=== PATIENT | female | born 1950 | race Caucasian/White ===

== ENCOUNTER 2022-10-25 07:50 | Day surgery (SDC) | payer MEDICARE, OTHER ==
[~2022-10-25] VITALS: Ht 172.7 cm; Wt 76.3 kg
[2022-10-25] VITALS (9 sets, daily range): BP systolic 126–154; BP diastolic 59–79
[2022-10-25] MEDS ORDERED: normal saline 1,000 ML IV SCH (08:15)
[2022-10-25] MEDS ORDERED: diphenhydrAMINE 25mg capsule PO PRN (08:15)
[2022-10-25] MEDS ORDERED: SERT25TA PO (08:24)
[2022-10-25] MEDS ORDERED: DIVA500T9 PO (08:24)
[2022-10-25] MEDS ORDERED: sodium bicarbonate (8.4%) inj. 150 ML in dextrose 5%-water 850 ML IV ONE (08:25)
[2022-10-25 08:49] LABS: BASOPHILS % (AUTO) 0.5 % (0-1); EOSINOPHILS # (AUTO) 0.1 X10'3 (0-0.9); HEMATOCRIT 34.1 % (35.0-45.0); HEMOGLOBIN 11.3 g/dl (12.0-16.0); LYMPHOCYTES # (AUTO) 2.9 X10'3 (1.1-4.8); LYMPHOCYTES % (AUTO) 35.9 % (21-51); MEAN CORPUSCULAR HEMOGLOBIN 30.9 PG (27.0-31.0); MEAN CORPUSCULAR HGB CONC 33.1 g/dL (33.0-36.5); MEAN CORPUSCULAR VOLUME 93.4 FL (78-98); MEAN PLATELET VOLUME 9.3 FL (7.4-10.4); MONOCYTES # (AUTO) 0.6 X10'3 (0-0.9); MONOCYTES % (AUTO) 7.1 % (2-12); NEUTROPHILS # (AUTO) 4.5 X10'3 (1.8-7.7); NEUTROPHILS % (AUTO) 55.5 % (42-75); PLATELET COUNT 141 X10'3 (140-440); RED BLOOD COUNT 3.65 X10'6 (4.20-5.60); RED CELL DISTRIBUTION WIDTH 13.4 % (11.5-14.5); WHITE BLOOD COUNT 8.1 X10'3 (4.5-11.0)
[2022-10-25 09:24] LABS: ALBUMIN 3.2 G/DL (3.4-5.0); ANION GAP 11 (8-16); BLOOD UREA NITROGEN 24 MG/DL (7-18); BUN/CREATININE RATIO 8.8 (6.6-38.0); CALCIUM 8.3 MG/DL (8.5-10.1); CHLORIDE 108 MMOL/L (99-107); CREATININE 2.74 MG/DL (0.40-0.90); GLUCOSE 116 MG/DL (70-104); MAGNESIUM 1.6 MG/DL (1.5-2.4); POTASSIUM 3.7 MMOL/L (3.5-5.1); SODIUM 140 MMOL/L (135-145); TOTAL CARBON DIOXIDE 20.6 MMOL/L (24-32); eGFR 17 ML/MIN
[2022-10-25] MEDS ORDERED: verapamil 2.5 mg/ml inj IV ONE (12:13)
[2022-10-25] MEDS ORDERED: nitroGLYCERIN-Tridil 50MG/D5W 250 ML IV ONE (12:13)
[2022-10-25] MEDS ORDERED: heparin 1,000unit/ml 10ml vial 20 ML ONE (12:14)
[2022-10-25] MEDS ORDERED: iohexol 350MG/ML 100ml bottle IV ONE (12:14)
[2022-10-25] MEDS ORDERED: iohexol 350 MG/ML 50ML vial IV ONE (12:14)
[2022-10-25] MEDS ORDERED: LIDOcaine 1% 30ml preserv. free vial ONE (12:14)
[2022-10-25] MEDS ORDERED: FENTANYL CITRATE/PF 50 MCG/1 ML VIAL ONE (12:14)
[2022-10-25] MEDS ORDERED: midazolam 1 mg/ML 2ml injection ONE (12:14)
[2022-10-25] MEDS ORDERED: hydrALAZINE 20mg/ml inj. IV ONE (13:08)
[2022-10-25] MEDS ORDERED: proCHLORperazine 10 MG/2 ml inj IV PRN (13:40)
[2022-10-25] MEDS ORDERED: ondansetron/PF 4mg/2ml inj IV PRN (13:40)
[2022-10-25] MEDS ORDERED: cloNIDine 0.1 mg tablet PO ONE (13:40)
[2022-10-25] MEDS ORDERED: HYDROcodone/acetaminophen 5mg/325mg tablet PO PRN (13:40)
[2022-10-25] MEDS ORDERED: HYDROcodone/acetaminophen 10/325mg tab PO PRN (13:40)
[2022-10-25] MEDS ORDERED: bumetanide 1mg tablet PO ONE (15:30)
== END 2022-10-25 16:50 | disposition home or self-care (01) ==
LOC: SSTAY O 07:50
PROVIDERS: ATTEND Internal Medicine Cardiovascular Disease
DX: R94.39 Abnormal result of other cardiovascular function study (principal); R07.9 Chest pain, unspecified; I25.10 Atherosclerotic heart disease of native coronary artery without angina pectoris; I48.0 Paroxysmal atrial fibrillation; I12.0 Hypertensive chronic kidney disease with stage 5 chronic kidney disease or end stage renal disease; E11.22 Type 2 diabetes mellitus with diabetic chronic kidney disease; N18.5 Chronic kidney disease, stage 5; D50.9 Iron deficiency anemia, unspecified; E11.42 Type 2 diabetes mellitus with diabetic polyneuropathy; F32.A Depression, unspecified; G47.419 Narcolepsy without cataplexy; Z87.19 Personal history of other diseases of the digestive system; Z90.89 Acquired absence of other organs; Z90.49 Acquired absence of other specified parts of digestive tract; Z98.49 Cataract extraction status, unspecified eye; Z88.5 Allergy status to narcotic agent; Z79.899 Other long term (current) drug therapy; Z98.890 Other specified postprocedural states
CPT/HCPCS: 36415; 80048; 83735; 85025; 85610; 93005; 93454; 99152; C1769; C1894; J0360; J1644; J2250; J3010; J3490; J7030; J7070; Q0163; Q9967; A6258; A6402

== ENCOUNTER 2025-09-28 22:51 | Inpatient (IN) | payer MEDICARE, OTHER ==
[~2025-09-28] VITALS: Ht 172.7 cm; Wt 64.0 kg
[~2025-09-28 22:51] MED LIST: DIVA500T9 PO; SERT25TA PO
[2025-09-29] MEDS ORDERED: ERGO500093 PO (00:28)
--- NOTE | 2025-09-29 01:02 | Physician Documentation ---
History of Present Illness ~ Chief Complaint: Flank Pain Stated Complaint: TRANSFER SE M ALS Time Seen by MD: 00:51 Primary Medical Doctor: [facility] Mode of Arrival: EMS HPI Patient presents to the emergency room sent from that [facility] side facility for acute kidney injury that has well as urinary tract infection. CT scan performed at facility was negative for obstructing stone. Patient found to have significant acidosis and was started on D5 with bicarb. Dr. Steele, cloth doffer was contacted in his aware of patient. Rocephin administered. Currently the patient has no complaints. She is established with nephrology and sees Dr. Rosario on regular basis. He is apparently told her that she will eventually need di alysis but has not yet. Medication Reconciliation Allergies: Coded Allergies: amoxicillin (Verified Allergy, Unknown, 09/29/25) ciprofloxacin (Verified Allergy, Unknown, RASH, 09/29/25) codeine (Verified Allergy, Unknown, 09/28/25) Scheduled Divalproex ER* (Depakote ER*), 2 TAB PO BID, (Reported) Ergocalciferol (Vitamin D2) (Vitamin D2), 1 CAP PO Q7D, (Reported) Sertraline Hcl* (Zoloft*), 100 MG PO BID, (Reported) Review of Systems ROS All review of systems negative except as per HPI Physical Exam Vital Signs: Temperature: 97.9, Source: Oral, Heart Rate: 108, Respiratory Rate: 14, BP: 137/60, Pulse Oximetry: 100, Weight: 68.000 Oxygen Flow Rate: 0 Physical Exam General: Patient is awake, alert, oriented x4 in no acute distress and well appearing.~ Head: Normocephalic and atraumatic. Eyes: Conjunctival normal. EOMI. PERRL. ENT: Mucous membranes moist. Neck: Supple, trachea is midline. Chest: Clear to auscultation bilaterally without rales, rhonchi, or wheezes. There is no accessory muscle use or retractions. Cardiac: RRR without murmurs, gallops, or rubs. Abd: Soft, nondistended, nontender, with normoactive bowel sounds. No guarding, rebound, or rigidity. Progress Results/Orders Results/Orders Orders - LORENZO YOUSSEF MD Page Hospitalist (09/29/25 01:47) Fill Out Med Reconciliation (09/29/25 01:47) Completed Orders - LORENZO YOUSSEF MD Cbc/Diff (09/29/25 00:52) BMP (09/29/25 00:52) Ferritin (09/29/25 01:10) Hgb A1c (09/29/25 01:10) Medications Received in ER Medications (Trade) Dose Ordered Sig/Inés Route PRN Reason Start Time Stop Time Status Last Admin Dose Admin Sodium Bicarbonate 150 ml/Dextrose 1,150 ml @ 100 mls/hr [id number] IV 09/29/25 02:20 09/29/25 02:20 100 MLS/HR Vital Signs 09/28/25 09/28/25 09/29/25 09/29/25 22:55 23:06 00:11 01:00 Temp 97.9 Pulse 58 108 104 Resp 16 16 14 15 B/P (MAP) 123/63 137/60 (85) 125/82 (96) Pulse Ox 99 100 100 O2 Flow Rate 0 0 09/29/25 01:56 Pulse 110 Resp 14 B/P (MAP) 107/54 (71) Pulse Ox 98 Laboratory Tests Test 09/28/25 23:55 09/29/25 01:10 Urine Specimen Description Cln catch midstream Urine Color Straw Urine Clarity Slightly cloudy Urine pH 6.0 Urine Specific [place] 1.015 Urine Protein Trace Urine Glucose (UA) Negative Urine Ketones Negative Urine Occult Blood Negative Urine Nitrite Negative Urine Bilirubin Negative Urine Urobilinogen 0.2 Urine Leukocyte Esterase Small H Urine RBC 0-2 Urine WBC 20-30 H Urine Squamous Epithelial Cells Few Urine Renal Cells Few Urine Bacteria 1+ Urine Mucus Few Urine Culture Indicated Indicated Volume Urine Centrifuged 10 ml Urine Comment White Blood Count 7.0 Red Blood Count 3.40 L Hemoglobin 10.9 L Hematocrit 32.1 L Mean Corpuscular Volume 94.4 Mean Corpuscular Hemoglobin 32.2 H Mean Corpuscular Hemoglobin Concent 34.1 Red Cell Distribution Width 14.1 Platelet Count 104 L Mean Platelet Volume 9.8 Neutrophils (%) (Auto) 53.3 Lymphocytes (%) (Auto) 38.0 Monocytes (%) (Auto) 8.0 Eosinophils (%) (Auto) 0.3 Basophils (%) (Auto) 0.4 Neutrophils # (Auto) 3.7 Lymphocytes # (Auto) 2.7 Monocytes # (Auto) 0.6 Eosinophils # (Auto) 0.0 Basophils # (Auto) 0.0 CBC Comment Sodium Level 145 Potassium Level 3.4 L Chloride Level 115 H Carbon Dioxide Level 17.7 L Anion Gap 12 Blood Urea Nitrogen 51 H Creatinine 4.90 H Estimated GFR/1.73 m2 9 BUN/Creatinine Ratio 10.4 Glucose Level 97 Hemoglobin A1c 5.1 Calcium Level 7.7 L Ferritin 377 H Albumin 2.9 L Chemistry Comments Medical Decision Making Additional information obtaine: other Findings Patient presents to the emergency room as a transfer from outside facility. Rechecking labs. Patient's vitals are stable. She is nontoxic appearing. Nephrology has already aware of patient. IV antibiotics have already been initiated. Urinary Diff Dx:Considerations: Include: AAA, , Aortic dissection, Appendicitis, Bowel obstruction, Cholelithiasis, Choleangitis, DJD, Ectopic , Hepatitis, HNP, Impaction, Intrauterine , Musculoskeletal pain, Ovarian torsion, Pancreatitis, PID, Post-Op complication, Pyelonephritis, Renal failure, Strain, Urinary Obstruction, Urolithiasis, Urinary retention, UTI, Vaginitis, Other Genital Diff Dx:Considerations: Include: -Complete, -Incomplet e, -Inevitable, Ablortion-Missed, -Threatened, Abruptio placentae, Bartholin abscess, Bartholin cyst, Blood loss anemia, Constipation, Cervicitis, Dsymenorrhea, Ectopic , Foreign body, Hormonal, Hidradenitis suppurativa, Intrauterine , Menorrhagia, Menometrorrhagia, Menstrual bleeding, Myomatous uterus, Perianal abscess, Physiologic discharge, Pinworms, PID, Placenta previa, , Precipitous Hct, Trauma, UTI, Vaginitis(osis)-Atrophic, Vaginitis, Vaginitis(osis)-Bacterial, Vaginitis(osis)- Candidal, Vaginitis(osis)-Contact, Vaginitis(osis)-Herpes, Vaginitis(osis)- Trich., Other Departure Admitted to Inpatient Unit: yes, to hospitalist Impression: Primary Impression: Acute urinary tract infection Additional Impression: Acute kidney injury Condition: Guarded Referrals: NO PRIMARY CARE PROVIDER (PCP) Critical Care Note Total Time (mins): 30 Critical Care Note The note accurately reflects work and decisions made by me.Lorenzo Youssef MD 09/29/25 01:02 Signature Scribe Signature: No scribe Attestation: The note accurately reflects work and decisions made by me.Lorenzo Youssef MD 09/29/25 04:23 LORENZO YOUSSEF MD Sep 29, 2025 01:02
[2025-09-29 01:41] LABS: CREATININE 4.90 MG/DL (0.40-0.90); TOTAL CARBON DIOXIDE 17.7 MMOL/L (24-32); eCRCL 10 ML/MIN; eGFR 9 ML/MIN
[2025-09-29 01:46] LABS: MEAN PLATELET VOLUME 9.8 FL (7.4-10.4); RED CELL DISTRIBUTION WIDTH 14.1 % (11.5-14.5)
[2025-09-29] MEDS ORDERED: magnesium sulf-water 4G/100mL 100 ML IV PRN (02:20)
[2025-09-29] MEDS ORDERED: magnesium sulf-water 2g/50mL 50 ML IV PRN (02:20)
[2025-09-29] MEDS: sodium bicarbonate 1meq/ml inj 150 ML in dextrose 5%-water 1,000 ML IV SCH (02:20)
[2025-09-29] MEDS ORDERED: potassium Cl 40MEQ/1/2NS 520ml 520 ML IV PRN (02:20)
[2025-09-29] MEDS ORDERED: potassium Cl 20 mEq SR tablet PO PRN (02:20)
[2025-09-29 03:45] LABS: LEUKOCYTE ESTERASE ,URINE SMALL (Neg); NITRITES, URINE NEGATIVE (Neg); OCCULT BLOOD,URINE NEGATIVE (Neg)
[2025-09-29 03:49] LABS: UA COLLECTION TYPE CLN CATCH MIDSTREAM
[2025-09-29 03:50] LABS: MUCUS STRANDS FEW /LPF (Neg); RENAL CELLS, URINE FEW /HPF; SQUAMOUS EPITHELIAL CELL,UR FEW /LPF (FEW)
--- NOTE | 2025-09-29 03:51 | HISTORY AND PHYSICAL-Residence ---
History & Physical Providers to CC Resident Creating Document: TRAVON ALDANA RES CC: MILLIE GONSALEZ MD ~ History of Present Illness Primary Medical Doctor: [facility] Reason for Admit\Complaint: Dysuria, fever History of Present Illness 44-year-old female with past medical history of CKD stage 4, seizures, revision, came as a transfer from [facility] for management of RADHA. Patient is initially started as dysuria, fever, nausea has been ongoing food to two weeks with decreased food and monitor intake. For these complaints she went to [place] with she was treated with Rocephin, fluids. She was also diagnosed with paroxysmal AFib with RVR and came IV metoprolol. Currently patient is in sinus rhythm with heart rate in 90s. She also had metabolic acidosis for which the started on bicarbonate drip. She is on follow up with Dr. Rosario on outpatient basis for CKD stage 4. Denies oliguria Allergies: Coded Allergies: amoxicillin (Verified Allergy, Unknown, 09/29/25) ciprofloxacin (Verified Allergy, Unknown, RASH, 09/29/25) codeine (Verified Allergy, Unknown, 09/28/25) Home Medications Home Medications Active Reported Vitamin D2 (Ergocalciferol (Vitamin D2)) 1,250 Mcg (75808 Unit) Capsule 1 Cap PO Q7D Zoloft* (Sertraline HCl) 25 Mg Tablet 100 Mg PO BID Depakote ER* (Divalproex Sodium) 500 Mg Tab.sr.24h 2 Tab PO BID Past Medical History Past Medical History Seizures, depression, CKD stage 4 Past Surgical History Surgical History Comment None Past Social History Social History Comment Denies smoking, alcohol, illicit drug use Independent for ADLs ROS ROS ROS Constitutional: No fever, dizziness, weakness. no change in appetite/weight HEENT: No blurring of the vision, No sore throat, epistaxis, tinnitus Cardiovascular: No chest pain/discomfort, palpitations, syncope. No pedal edema Respiratory: No sob, cough,, hemoptysis Gastrointestinal: No abdominal pain, nausea, vomiting. No diarrhea, constipation, melena. Genitourinary: Complaining of dysuria, intermittent abdominal pain Musculoskeletal: No arthralgia, myalgia Endocrine: No fatigue, polydipsia, polyuria. No heat or cold intolerance Neurologic: No headache, vertigo. No weakness, numbness or tingling of extremities Psychiatric: No hallucinations/delusions, no anhedonia, no suicidal ideation\ Hematologic: No bleeding or bruises Reviewed in full. All negative except for pertinent positives in HPI Exam Vitals: Vital Signs Date Time Temp Pulse Resp B/P (MAP) Pulse Ox O2 Delivery O2 Flow Rate FiO2 09/29/25 03:00 64 16 117/56 (76) 100 09/29/25 00:11 0 09/28/25 22:55 97.9 General: General: Pleasant elderly female, thin and malnourished, not in apparent distress Head: Normocephalic with an atraumatic Eyes: Pupils- 3mm, reacting to light, conjunctiva- anicteric Nose and throat: No polyps, septum- normal, no mucosal ulcers Neck: Supple, no lymphadenopathy, no carotid bruit Respiratory: No use of accessory muscles of respiration, Bilateral normal vesiscular breath sounds heard. No wheeze, rhochi or creps Cardiac: S1-S2 heard, rythm regular, no gallop/murmur Abdomen: non distended, no tenderness, no organomegaly, bowel sounds- heard Extremities: no clubbing, no pedal edema, no deformities, peripheral pulses- 2+ Skin: warm and dry, no rash, no purpura Neuro: No focal deficit, gross cranial nerve exam- normal Diagnostic Data Last Recorded Lab Results: 09/29/2510909/29/25109 Advance Care Planning Advanced Care plannin - 30 Minutes (Code status is discussed with her and she opted for full code) Additional Plan 74-year-old female with PMH of CKD four, seizures, depression, presented to the ER with chief complaints of dysuria, fever, vomitings for two weeks UTI/ACUTE CYSTITIS -presented with dysuria, few, vomitings ongoing for two weeks with history of UTI once a year -previous history of MDR organism -CT abdomen ruled out pyelonephritis -urinalysis positive for leukocyte esterase, negative nitrites, multiple WBC -empirically started on IV Rocephin -follow up on urine cultures and deescalate antibiotics if needed RADHA ON CKD-4 -currently creatinine-4.9, creatinine was 5.2 yesterday -baseline creatinine unknown but as per patient she had stage IV CKD -etiology of CKD unknown. She had no history of diabetes/hypertension she is on follow up with sql manager, obtain records from Dr. Florez office -monitor BMP, follow up on urine lytes, -CT abdomen showed bilateral renal scarring right more than left-suggesting CKD -monitor calcium, phosphorus, PTH NON-ANION GAP METABOLIC ACIDOSIS -suspect likely secondary to RADHA/CKD -bicarb 18 -started on bicarbonate drip 150 meq in D5W at 100 cc/hour -monitor BMP NEPHROLITHIASIS -CT abdomen showed small punctate calculi, nonobstructive -recommended adequate hydration PAROXYSMAL AFIB -Gagan Vasc-2 -started on metoprolol succinate 25 mg once daily -follow up on 2D echo -consider anticoagulation at the time of discharge after decision-making with patient Normocytic anemia -H&H common normal MCV and MCH -suspect likely secondary to anemia of chronic disease -follow up on iron panel SEIZURES -continue valproic acid 500 mg b.i.d. DEPRESSION -continue sertraline Code Status: Full code Line/tube: PIV DVT prophylaxis: Heparin Nutrition: Renal diet PT: Yes Prognosis: Guarded Disposition: Continue care in ortho floor Travon Aldana MD IM PGY-3 resident Addendum I personally reviewed the chart, labs and imaging and reviewed the patient with the team. I agree with the assessment and plan as documented by the resident. Patient was seen through remote audio-visual assessment through HIPAA compliance setup. Date of Service: Sep 29, 2025 Billing Provider: MILLIE GONSALEZ MD, HARIVARSHA, RES Sep 29, 2025 03:51 MILLIE GONSALEZ MD Sep 29, 2025 06:40
[2025-09-29] MEDS: docusate sod 100mg capsule PO SCH (07:58)
[2025-09-29] MEDS: potassium Cl 20 mEq SR tablet PO PRN (07:58)
[2025-09-29] MEDS: CefTRIAXone/D5W-Rocephin 1gm 50 ML IV SCH (07:58)
[2025-09-29] MEDS: divalproex sodium 500mg tablet.DR PO SCH (07:59)
[2025-09-29 08:00] VITALS: BP 117/52; PULSE 56; RESP 16; TEMP 97.9; O2SAT 95; O2SAT 97
[2025-09-29] MEDS: heparin, porcine 5000 units/ml vial SQ SCH (08:00)
[2025-09-29] MEDS: K and/or MAG REPLACEMENT MC SCH (08:04)
[2025-09-29 08:28] LABS: CREATININE 4.57 MG/DL (0.40-0.90); TOTAL CARBON DIOXIDE 21.2 MMOL/L (24-32); eCRCL 11 ML/MIN; eGFR 9 ML/MIN
[2025-09-29 10:00] VITALS: BP 120/49; PULSE 59; RESP 19; TEMP 97.7; O2SAT 100
[2025-09-29] MEDS: PERFLUTREN PROTEIN-A MICROSPHR (Optison) 0.22 MG/ML 3ML VIAL IV ONE (10:00)
[2025-09-29 11:36] LABS: % IRON SATURATION 30 % (11-46)
[2025-09-29] MEDS ORDERED: Nepro carb steady vanilla 8oz. PO SCH (17:30)
[2025-09-29] MEDS: Nepro carb steady vanilla 8oz. PO SCH (17:53)
[2025-09-29 18:00] VITALS: BP 124/50; PULSE 58; RESP 16; TEMP 97.5; O2SAT 99
--- NOTE | 2025-09-29 19:18 | PROGRESS NOTE- Residence ---
Progress Note - Resident Providers to CC Resident Creating Document: BRYCE CYR RES ~ Antibiotic Timeout Antibiotic Ordered?: Yes Subjective Patient was seen and examined bedside. She states that she does not have burning micturition today and is feeling better. She is resting comfortable in bed. She denies any medical complaints. PCP-Dr. Gray in [place] Concrete Block Maker- Dr. Ewing Navigation Teacher- Dr. Crane She can ambulate independently, but sometimes uses a walker She lives alone at home Objective Vital Signs Date Time Temp Pulse Resp B/P (MAP) Pulse Ox O2 Delivery O2 Flow Rate FiO2 09/29/25 18:30 90 09/29/25 18:00 97.5 16 124/50 (74) 99 Room Air 09/29/25 05:54 0 Result Diagram: 09/29/25 0110 09/29/25 0732 Awake , alert, and oriented x4, resting comfortably in the bed, in no acute distress HEENT: Atraumatic, normocephalic, EOMI, anicteric sclera ; pink conjunctiva Neck: Trachea midline. Supple, full range of motion, no JVD Cardiac: Regular rhythm, regular rate with no murmurs all over the precordium. Respiratory: Equal breath sounds bilaterally, no tachypnea, no wheezing ,rub or rales, Chest wall is symmetric and without deformity. Gastrointestinal: Abdomen symmetric, non-distended, soft, non-tender, normal bowel sounds x4 quadrant, normoactive, no hepatosplenomegaly Musculoskeletal: No pedal edema, no cyanosis Neurological: Speech is clear, alert, and oriented x 4. No motor or sensory deficit, deep tendon reflexes normal, cerebellar intact. Cranial nerves II-XII intact. Skin: Warm and dry Assessment Assessment 74 yr old female with history of CKD stage 4 transferred from [facility] for management of RADHA and UTI. Plan Plan UTI Presented with dysuria, vomiting ongoing for two weeks with history of UTI once a year Previous history of MDR organism Urinalysis positive for leukocyte esterase, negative nitrites, multiple WBC CT abdomen at [facility] ruled out pyelonephritis Continue IV Rocephin-day 1 Follow up on urine cultures RADHA on CKD stage 4, most likely multifactorial Prerenal ( due to dehydration, Vasomotor nephropathy) and Intrinsic 2/2 ATN Non anion gap metabolic acidosis Creatinine downtrended from 4.9 to 4.57 Baseline creatinine unknown but as per patient she had stage IV CKD BUN is 48 BUN/Cr is normal Fena 1.6 %, which is indeterminate Urine sodium is 50 Etiology of CKD unknown. She had no history of diabetes/hypertension She follows Dr. Rosario outpatient CT abdomen at [facility] showed bilateral renal scarring right more than left- suggesting CKD Corrected calcium 8.6 Follow up phosphorus Pending PTH Bicarbonate has uptrended from 17.7 to 21.2, continue bicarb drip at 100 ml/hr Dr. Steele was consulted, awaiting recommendations Nephrolithiasis CT abdomen at [facility] showed small punctate calculi, nonobstructive Recommended adequate hydration Paroxysmal Afib, rate controlled Gagan Vasc-2 Continue metoprolol succinate 25 mg once daily Follow up echo Patient used eliquis previously but due to bleeding, it was held around 3-4 years ago She follows up with Dr. Crane, and the last she saw him was last month Follow up outpatient Normocytic Hyperchromic anemia H&H - 10.9/32.1 Likely secondary to anemia of chronic disease Serum iron is normal, TIBC is low-253 Pending transferrin Seizures Continue home medication valproic acid 500 mg b.i.d. Depression Continue home medication sertraline 100 mg daily Critical care time spent on the patient > 35 min Code status: Full code DVT prophylaxis: Heparin SubQ Diet/nutrition: Renal diet Prognosis: Guarded Disposition: Continue IV Rocephin, follow urine cultures and monitor renal function tests, awaiting Dr. Steele recommendations, PT eval and DC plan. Resident MD attestation: The patient note has been reviewed and supervised by senior residents PGY-2/ PGY-3. Critical care time 35 minutes. Patient was seen, examined and discussed with attending physician, Dr. Kristyn Cyr MD Internal Medicine resident, PGY-1 Date of Service: Sep 29, 2025 Billing Provider: BERNABE MCGRAW MD Common Visit Codes: 33946-[id number] CARE 30-74 MIN BRYCE CYR, RES Sep 29, 2025 19:18 BERNABE MCGRAW MD Oct 04, 2025 13:48
[2025-09-29 21:07] LABS: CREATININE,URINE RANDOM 96.0 MG/DL; TOTAL PROTEIN,URINE RANDOM 48.9 MG/DL; UA UREA RANDOM 489.0 MG/DL
--- NOTE | 2025-09-29 21:33 | CONSULTATION REPORT ---
Consult Providers to CC ~ History of Present Illness Reason for Admit\Complaint: UTI dysuria History of Present Illness This is a 44-year-old woman with a history of CKD stage IV, seizure disorder, recurrent nephrolithiasis, and chronic NSAID use, transferred for management of RADHA on CKD, with additional comorbidities including non-anion gap metabolic acidosis, normocytic anemia of CKD, paroxysmal atrial fibrillation, and acute cystitis/UTI. She presented with dysuria, nausea, and vomiting, and was found to have a UTI, for which she was started on ceftriaxone. She developed RADHA with a creatinine of 5.2 (now improved to 4.9 after IV fluids), likely multifactorial in etiology, including pre-renal azotemia from volume depletion, possible acute tubular injury, and chronic interstitial nephritis from recurrent stones, infections, and NSAID use. Imaging revealed bilateral renal scarring and a nonobstructing renal calculus without hydronephrosis. She has a non-anion gap metabolic acidosis (CO2 17.7) for which she received bicarbonate therapy. Her normocytic anemia (Hgb 10.9) is consistent with CKD, with ferritin and iron saturation suggesting adequate iron stores. She is also being managed for new- onset atrial fibrillation ([id number] 2) with metoprolol. Her current labs show mild hypokalemia, mild hyponatremia, and hypoalbuminemia. She remains hemodynamically stable, with improving renal function and no current indications for urgent dialysis. Ongoing management will focus on optimizing volume status, correcting metabolic derangements, monitoring for complications, and addressing all CKD-related comorbidities. Allergies: Coded Allergies: amoxicillin (Verified Allergy, Unknown, 09/29/25) ciprofloxacin (Verified Allergy, Unknown, RASH, 09/29/25) codeine (Verified Allergy, Unknown, 09/28/25) lactose (Verified Adverse Reaction, Severe, 09/29/25) causes severe diarrhea upon consumption Home Medications Home Medications Active Reported Vitamin D2 (Ergocalciferol (Vitamin D2)) 1,250 Mcg (14895 Unit) Capsule 1 Cap PO Q7D Zoloft* (Sertraline HCl) 25 Mg Tablet 100 Mg PO BID Depakote ER* (Divalproex Sodium) 500 Mg Tab.sr.24h 2 Tab PO BID Past Medical History Past Medical History Reviewed Past Surgical History Surgical History Comment Reviewed Past Social History Social History Comment Reviewed ROS ROS All other systems negative by patient report Exam Vitals: Vital Signs Date Time Temp Pulse Resp B/P (MAP) Pulse Ox O2 Delivery O2 Flow Rate FiO2 09/29/25 20:00 Room Air 0.0 09/29/25 18:30 90 09/29/25 18:00 97.5 16 124/50 (74) 99 Alert appears comfortable RRR w/o murmur, no JVD CTAB, no wheezes +BS, NT No edema Diagnostic Data Last Recorded Lab Results: 09/29/25 0110 09/29/25 0732 Problems: (1) Disorders of fluid, electrolyte, and acid-base balance Assessment & Plan: Non-Anion Gap Metabolic Acidosis Assessment: Likely due to renal tubular acidosis from advanced CKD; initial bicarbonate 18, improved with IV bicarbonate. Plan: Continue bicarbonate supplementation (oral sodium bicarbonate as tolerated). Monitor serum bicarbonate and adjust dose to maintain CO2 >22. Monitor for volume overload with bicarbonate therapy. Electrolyte Abnormalities Assessment: Mild hypokalemia (K 3.4), mild hyperchloremia, hypoalbuminemia. Plan: Replete potassium as needed, monitor closely. Monitor sodium, chloride, and albumin. Nutritional consult for hypoalbuminemia. (2) Anemia (3) Atrial fibrillation with RVR Assessment & Plan: Paroxysmal Atrial Fibrillation ([id number] 2) Assessment: New-onset atrial fibrillation, rate controlled with metoprolol, no current symptoms. Plan: Continue metoprolol for rate control. Assess need for anticoagulation ([id number] 2, but bleeding risk in CKD). Echocardiogram pending for structural assessment. Monitor electrolytes and volume status. (4) UTI (urinary tract infection) Assessment & Plan: Acute Cystitis/UTI Assessment: Symptomatic UTI, urine cultures pending, started on ceftriaxone. Plan: Continue ceftriaxone pending culture results and sensitivities. Adjust antibiotics based on culture and renal function. Monitor for signs of pyelonephritis or sepsis. (5) Nephrolithiasis Assessment & Plan: Nephrolithiasis and Bilateral Renal Scarring Assessment: History of recurrent stones, current nonobstructing calculus, and bilateral scarring, likely contributing to CKD progression. Plan: Monitor for signs of obstruction or infection. Encourage high fluid intake as tolerated. Consider metabolic stone workup when stable. Urology referral for stone management if indicated. (6) Acute kidney injury Status: Acute Assessment & Plan: RADHA on CKD Stage IV Assessment: Acute kidney injury superimposed on advanced CKD, likely multifactorial (pre-renal from volume depletion, possible acute tubular injury, chronic interstitial nephritis from stones, infections, NSAID use). Plan: Continue to monitor renal function and urine output closely. Maintain euvolemia; avoid further nephrotoxins (NSAIDs, contrast). Adjust all medications for renal dosing. Monitor for indications for renal replacement therapy (refractory hyperkalemia, acidosis, volume overload, uremic symptoms). Repeat renal imaging if clinical status changes. ALLYSON JEAN III DO Sep 29, 2025 21:33
[2025-09-29 22:00] VITALS: BP 101/49; PULSE 75; RESP 19; TEMP 97.9; O2SAT 97
[2025-09-30 06:00] VITALS: BP 130/73; PULSE 60; RESP 14; TEMP 97.3; O2SAT 99
[2025-09-30 06:21] LABS: MEAN PLATELET VOLUME 10.3 FL (7.4-10.4); RED CELL DISTRIBUTION WIDTH 13.6 % (11.5-14.5)
[2025-09-30 06:30] LABS: CREATININE 4.29 MG/DL (0.40-0.90); PHOSPHORUS 4.2 MG/DL (2.3-4.5); TOTAL CARBON DIOXIDE 29.9 MMOL/L (24-32); eCRCL 12 ML/MIN; eGFR 10 ML/MIN
[2025-09-30] MEDS: magnesium Cl slow-release 64mg tablet PO PRN (07:32)
[2025-09-30 08:00] VITALS: RESP 17; O2SAT 97
[2025-09-30] MEDS: normal saline 1000ml 1,000 ML IV SCH (08:52)
[2025-09-30 10:00] VITALS: BP 110/72; PULSE 65; RESP 16; TEMP 98.8; O2SAT 100
[2025-09-30] MEDS: potassium Cl 20 mEq SR tablet PO STA (13:09)
--- NOTE | 2025-09-30 17:43 | PROGRESS NOTE- Residence ---
Progress Note - Resident Providers to CC Resident Creating Document: PETER OCHOATIK, SID ~ Antibiotic Timeout Antibiotic Ordered?: Yes Subjective Patient seen and examined at the bedside today. Patient stated that her burning micturition has improved. She now has no further nausea or episodes of vomiting and overall is feeling better. Denied any further concerns or complaints. We have had a discussion with the patient regarding the possibility of dialysis and the patient stated that she understands the risks, benefits and the problems of her condition. No other overnight events were reported. Objective Vital Signs Date Time Temp Pulse Resp B/P (MAP) Pulse Ox O2 Delivery O2 Flow Rate FiO2 09/30/25 10:00 98.8 65 16 110/72 (85) 100 Room Air 09/29/25 20:00 0.0 Result Diagram: 09/30/25 0538 09/30/25 0538 Awake , alert, and oriented x4, resting comfortably in the bed, in no acute distress HEENT: Atraumatic, normocephalic, EOMI, anicteric sclera ; pink conjunctiva Neck: Trachea midline. Supple, full range of motion, no JVD Cardiac: Irregularly irregular rate and rhythm. No murmurs or rubs noted. Respiratory: Equal breath sounds bilaterally, no tachypnea, no wheezing ,rub or rales, Chest wall is symmetric and without deformity. Gastrointestinal: Abdomen symmetric, non-distended, soft, non-tender, normal bowel sounds x4 quadrant, normoactive, no hepatosplenomegaly Musculoskeletal: No pedal edema, no cyanosis Neurological: Speech is clear, alert, and oriented x 4. No motor or sensory deficit, deep tendon reflexes normal, cerebellar intact. Cranial nerves II-XII intact. Skin: Warm and dry Assessment Assessment 74 yr old female with history of CKD stage 5 transferred from [facility] for management of RADHA and UTI. Plan Plan UTI Presented with dysuria, vomiting ongoing for two weeks with history of UTI once a year Previous history of MDR organism Urinalysis positive for leukocyte esterase, negative nitrites, multiple WBC CT abdomen at [facility] ruled out pyelonephritis Continue IV Rocephin-day 02 Urine culture no growth after one day. RADHA on CKD stage 5, most likely multifactorial Prerenal ( due to dehydration, Vasomotor nephropathy) and Intrinsic 2/2 ATN Non anion gap metabolic acidosis gastroesophageal The patient's renal function test showing mild improvement. Creatinine 4.29 today. The patient's BUN/creatinine was normal, phenol 1.6% and spot sodium was 50. CT abdomen at [facility] showed bilateral renal scarring right more than left- suggesting CKD Requested strict input and output monitoring. History of advanced CKD most likely multifactorial from decreased volume, ATN, chronic interstitial nephritis from renal stones, NS ID use and infections. She follows Dr. Rosario outpatient Patient appeared significantly dehydrated. Was initially treated with IV bicarb drip due to metabolic acidosis. The metabolic acidosis has corrected. The bicarb today is 29.9. Change the bicarb to NS at 100 cc/hour. The on-call commercial illustrator Dr. Steele has been following the patient. Appreciate recommendations. Dr. Steele has been discussing with the patient the possibility of having to start dialysis with the patient. We will monitor and continue management as per Dr. Stelee. Hypokalemia Hypomagnesemia The patient received p.o. potassium of 20 mEq and p.o. magnesium of 128 mg. Conservative management of replacement of the patient's electrolytes as the patient has very poor renal function. We will continue to monitor the patient's electrolytes closely. Continue management as per Dr. Steele, nephrology. Nephrolithiasis CT abdomen at [place] showed small punctate calculi, nonobstructive Recommended adequate hydration. Continue NS at 100 cc/hour. Paroxysmal Afib, rate controlled Gagan Vasc-2 Continue metoprolol succinate 25 mg once daily Follow up echo Patient used eliquis previously but due to bleeding, it was held around 3-4 years ago She follows up with Dr. Crane, and the last she saw him was last month Follow up outpatient Normocytic Hyperchromic anemia Most likely secondary to anemia of chronic disease. Continue H&H monitoring. Seizures Continue home medication valproic acid 500 mg b.i.d. Depression Continue home medication sertraline 100 mg daily Code status: Full code DVT prophylaxis: Heparin SubQ Diet/nutrition: Renal diet Prognosis: Guarded Disposition: Continue medical management. Continue to monitor the patient's renal function test and electrolytes. Dr. Steele following the patient for possibility of dialysis. Continue management as per Dr. Steele. Peter Ochoa MD Internal Medicine Resident, PGY-3 Date of Service: Sep 30, 2025 Billing Provider: BERNABE MCGRAW MD Common Visit Codes: [id number] INP/OBS CARE(HIGH) PETER OCHOAK, RES Sep 30, 2025 17:43 BERNABE MCGRAW MD Oct 04, 2025 13:44
[2025-09-30 18:00] VITALS: BP 136/56; PULSE 65; RESP 16; TEMP 98.6; O2SAT 98
[2025-09-30 22:00] VITALS: BP 125/55; PULSE 66; RESP 14; TEMP 97.4; O2SAT 96
--- NOTE | 2025-09-30 22:07 | PROGRESS NOTE ---
Progress Note Dictate Providers to CC ~ Progress Note: This is a 44-year-old woman with a history of CKD stage IV, seizure disorder, recurrent nephrolithiasis, and chronic NSAID use, transferred for management of RADHA on CKD, with additional comorbidities including non-anion gap metabolic acidosis, normocytic anemia of CKD, paroxysmal atrial fibrillation, and acute cystitis/UTI. She presented with dysuria, nausea, and vomiting, and was found to have a UTI, for which she was started on ceftriaxone. She developed RADHA with a creatinine of 5.2 (now improved to 4.9 after IV fluids), likely multifactorial in etiology, including pre-renal azotemia from volume depletion, possible acute tubular injury, and chronic interstitial nephritis from recurrent stones, infections, and NSAID use. Imaging revealed bilateral renal scarring and a nonobstructing renal calculus without hydronephrosis. She has a non-anion gap metabolic acidosis (CO2 17.7) for which she received bicarbonate therapy. Her normocytic anemia (Hgb 10.9) is consistent with CKD, with ferritin and iron saturation suggesting adequate iron stores. She is also being managed for new- onset atrial fibrillation ([id number] 2) with metoprolol. Her current labs show mild hypokalemia, mild hyponatremia, and hypoalbuminemia. She remains hemodynamically stable, with improving renal function and no current indications for urgent dialysis. Ongoing management will focus on optimizing volume status, correcting metabolic derangements, monitoring for complications, and addressing all CKD-related comorbidities. Antibiotic Ordered?: N/A Subjective Subjective He reports doing well this morning no specific complaints Objective Vitals Vital Signs Date Time Temp Pulse Resp B/P (MAP) Pulse Ox O2 Delivery O2 Flow Rate FiO2 09/30/25 20:00 Room Air 0.0 09/30/25 18:30 64 09/30/25 18:00 98.6 16 136/56 (82) 98 Alert, appears comfortable Regular rate and rhythm without murmur, no JVD Clear to auscultation bilaterally, no wheezes Bowel sounds, nontender, no masses No edema Lab Results: 09/30/25 0538 09/30/25 1846 Other Results I & O 09/30/25 07:00 Intake Total 2740 ml Output Total 200 ml Balance 2540 ml Intake Oral 540 ml IV Total 1100 ml Other 1100 ml Output Urine Total 200 ml # Voids 4 Problem\Assessment\Plan Problems/Diagnosis: (1) Disorders of fluid, electrolyte, and acid-base balance Assessment & Plan: Non-Anion Gap Metabolic Acidosis Assessment: Likely due to renal tubular acidosis from advanced CKD; initial bicarbonate 18, improved with IV bicarbonate. Plan: Continue bicarbonate supplementation (oral sodium bicarbonate as tolerated). Monitor serum bicarbonate and adjust dose to maintain CO2 >22. Monitor for volume overload with bicarbonate therapy. Electrolyte Abnormalities Assessment: Mild hypokalemia (K 3.4), mild hyperchloremia, hypoalbuminemia. Plan: Replete potassium as needed, monitor closely. Monitor sodium, chloride, and albumin. Nutritional consult for hypoalbuminemia. (2) Atrial fibrillation with RVR Assessment & Plan: Paroxysmal Atrial Fibrillation ([id number] 2) Assessment: New-onset atrial fibrillation, rate controlled with metoprolol, no current symptoms. Plan: Continue metoprolol for rate control. Assess need for anticoagulation ([id number] 2, but bleeding risk in CKD). Echocardiogram pending for structural assessment. Monitor electrolytes and volume status. (3) UTI (urinary tract infection) Assessment & Plan: Acute Cystitis/UTI Assessment: Symptomatic UTI, urine cultures pending, started on ceftriaxone. Plan: Continue ceftriaxone pending culture results and sensitivities. Adjust antibiotics based on culture and renal function. Monitor for signs of pyelonephritis or sepsis. (4) Nephrolithiasis Assessment & Plan: Nephrolithiasis and Bilateral Renal Scarring Assessment: History of recurrent stones, current nonobstructing calculus, and bilateral scarring, likely contributing to CKD progression. Plan: Monitor for signs of obstruction or infection. Encourage high fluid intake as tolerated. Consider metabolic stone workup when stable. Urology referral for stone management if indicated. (5) Acute kidney injury Assessment & Plan: RADHA on CKD Stage IV Assessment: Acute kidney injury superimposed on advanced CKD, likely multifactorial (pre-renal from volume depletion, possible acute tubular injury, chronic interstitial nephritis from stones, infections, NSAID use). Plan: Continue to monitor renal function and urine output closely. Maintain euvolemia; avoid further nephrotoxins (NSAIDs, contrast). Adjust all medications for renal dosing. Monitor for indications for renal replacement therapy (refractory hyperkalemia, acidosis, volume overload, uremic symptoms). Repeat renal imaging if clinical status changes. ALLYSON JEAN III DO Sep 30, 2025 22:07
[2025-10-01 05:51] LABS: MEAN PLATELET VOLUME 9.8 FL (7.4-10.4); RED CELL DISTRIBUTION WIDTH 13.8 % (11.5-14.5)
[2025-10-01 06:00] VITALS: BP 111/46; PULSE 68; RESP 14; TEMP 97.8; O2SAT 97
[2025-10-01 06:15] LABS: CREATININE 4.20 MG/DL (0.40-0.90); PHOSPHORUS 4.0 MG/DL (2.3-4.5); TOTAL CARBON DIOXIDE 27.6 MMOL/L (24-32); eCRCL 12 ML/MIN; eGFR 10 ML/MIN
[2025-10-01 15:43] VITALS: BP 131/62; PULSE 71; RESP 16; TEMP 97.2; O2SAT 99
[2025-10-01] MEDS: ondansetron/PF 4mg/2ml inj IV PRN (17:39)
--- NOTE | 2025-10-01 17:46 | PROGRESS NOTE- Residence ---
Progress Note - Resident Providers to CC Resident Creating Document: PETER OCHOA, SID ~ Antibiotic Timeout Antibiotic Ordered?: Yes Subjective Patient seen and examined at the bedside today. The patient stated that she is better and denied any new concerns or complaints. He had a discussion with Dr. Steele and reported that she is going to have further discussions with her manager roofing Dr. Rosario and decide regarding if she is going to proceed with the dialysis. Objective Vital Signs Date Time Temp Pulse Resp B/P (MAP) Pulse Ox O2 Delivery O2 Flow Rate FiO2 10/01/25 15:43 97.2 71 16 131/62 (85) 99 Room Air 10/01/25 08:00 0.0 Result Diagram: 10/01/253 10/01/25 0443 Awake , alert, and oriented x4, resting comfortably in the bed, in no acute distress HEENT: Atraumatic, normocephalic, EOMI, anicteric sclera ; pink conjunctiva Neck: Trachea midline. Supple, full range of motion, no JVD Cardiac: Irregularly irregular rate and rhythm. No murmurs or rubs noted. Respiratory: Equal breath sounds bilaterally, no tachypnea, no wheezing ,rub or rales, Chest wall is symmetric and without deformity. Gastrointestinal: Abdomen symmetric, non-distended, soft, non-tender, normal bowel sounds x4 quadrant, normoactive, no hepatosplenomegaly Musculoskeletal: No pedal edema, no cyanosis Neurological: Speech is clear, alert, and oriented x 4. No motor or sensory deficit, deep tendon reflexes normal, cerebellar intact. Cranial nerves II-XII intact. Skin: Warm and dry Assessment Assessment 74 yr old female with history of CKD stage 5 transferred from [facility] for management of RADHA and UTI. Plan Plan UTI Presented with dysuria, vomiting ongoing for two weeks with history of UTI. Previous history of MDR organism Urinalysis positive for leukocyte esterase, negative nitrites, multiple WBC CT abdomen at [facility] ruled out pyelonephritis Continue IV Rocephin-day 03 Urine culture no growth after two days. RADHA on CKD stage 5, most likely multifactorial Prerenal ( due to dehydration, Vasomotor nephropathy) and Intrinsic 2/2 ATN Non anion gap metabolic acidosis gastroesophageal The patient's renal function test showing mild improvement. Creatinine 4.20 today. The patient's BUN/creatinine was normal, FENA 1.6% and spot sodium was 50. CT abdomen at [facility] showed bilateral renal scarring right more than left- suggesting CKD Requested strict input and output monitoring. History of advanced CKD most likely multifactorial from decreased volume, ATN, chronic interstitial nephritis from renal stones, NSAID use and infections. She follows Dr. Rosario outpatient Patient appeared significantly dehydrated. Was initially treated with IV bicarb drip due to metabolic acidosis. The metabolic acidosis has corrected. Bicarb drip has been stopped. Continue NS at 100 cc/hour. The on-call manager roofing Dr. Steele has been following the patient. Appreciate recommendations. Dr. Steele has been discussing with the patient the possibility of having to start dialysis with the patient. The patient is going to have discussion with her manager roofing Dr. Rosario regarding the dialysis and decide today whether he wants to proceed with not. Continue management as per the manager roofing. Hypokalemia Hypomagnesemia Potassium improving. Continuing p.o. potassium and magnesium. Conservatively treating the patient's hypokalemia and hypomagnesemia in view of her CKD stage 5. We will continue to monitor the patient's electrolytes closely. Continue management as per Dr. Steele, nephrology. Nephrolithiasis CT abdomen at [place] showed small punctate calculi, nonobstructive Recommended adequate hydration. Continue NS at 100 cc/hour. Paroxysmal Afib, rate controlled Gagan Vasc-2 Continue metoprolol succinate 25 mg once daily Echocardiography for overall left ventricular ejection fraction of 60-65% with a right ventricular systolic pressure of 36 mmHg. There is dilation of the left atrium. Patient used eliquis previously but due to bleeding, it was held around 3-4 years ago She follows up with Dr. Crane, and the last she saw him was last month Follow up outpatient. Normocytic Hyperchromic anemia Most likely secondary to anemia of chronic disease. Continue H&H monitoring. Seizures Continue home medication valproic acid 500 mg b.i.d. Depression Continue home medication sertraline 100 mg daily Code status: Full code DVT prophylaxis: Heparin SubQ Diet/nutrition: Renal diet Prognosis: Guarded Disposition: Continue medical management, monitoring the patient's renal function test and electrolytes. Continue management as per Nephrology recommendations. Peter Ochoa MD Internal Medicine Resident, PGY-3 Date of Service: Oct 01, 2025 Billing Provider: BERNABE MCGRAW MD Common Visit Codes: [id number] INP/OBS CARE(HIGH) PETER OCHOA, RES Oct 01, 2025 17:46 BERNABE MCGRAW MD Oct 04, 2025 13:44
[2025-10-01 18:00] VITALS: BP 131/59; PULSE 61; RESP 20; TEMP 98.1; O2SAT 98
--- NOTE | 2025-10-01 18:25 | PROGRESS NOTE ---
Progress Note Dictate Providers to CC ~ Progress Note: This is a 44-year-old woman with a history of CKD stage IV, seizure disorder, recurrent nephrolithiasis, and chronic NSAID use, transferred for management of RADHA on CKD, with additional comorbidities including non-anion gap metabolic acidosis, normocytic anemia of CKD, paroxysmal atrial fibrillation, and acute cystitis/UTI. She presented with dysuria, nausea, and vomiting, and was found to have a UTI, for which she was started on ceftriaxone. She developed RADHA with a creatinine of 5.2 (now improved to 4.9 after IV fluids), likely multifactorial in etiology, including pre-renal azotemia from volume depletion, possible acute tubular injury, and chronic interstitial nephritis from recurrent stones, infections, and NSAID use. Imaging revealed bilateral renal scarring and a nonobstructing renal calculus without hydronephrosis. She has a non-anion gap metabolic acidosis (CO2 17.7) for which she received bicarbonate therapy. Her normocytic anemia (Hgb 10.9) is consistent with CKD, with ferritin and iron saturation suggesting adequate iron stores. She is also being managed for new- onset atrial fibrillation ([id number] 2) with metoprolol. Her current labs show mild hypokalemia, mild hyponatremia, and hypoalbuminemia. She remains hemodynamically stable, with improving renal function and no current indications for urgent dialysis. Ongoing management will focus on optimizing volume status, correcting metabolic derangements, monitoring for complications, and addressing all CKD-related comorbidities. Antibiotic Ordered?: N/A Subjective Subjective Doing well this morning, no specific complaints Objective Vitals Vital Signs Date Time Temp Pulse Resp B/P (MAP) Pulse Ox O2 Delivery O2 Flow Rate FiO2 10/01/25 15:43 97.2 71 16 131/62 (85) 99 Room Air 10/01/25 08:00 0.0 Alert RRR w/o murmur CTAB +BS, NT No edema Lab Results: 10/01/25 0443 10/01/25 0443 Other Results I & O 10/01/25 07:00 Intake Total 850 ml Output Total 300 ml Balance 550 ml Intake Oral 850 ml Output Urine Total 300 ml # Voids 1 # Bowel Movements 1 Problem\Assessment\Plan Problems/Diagnosis: (1) Disorders of fluid, electrolyte, and acid-base balance Assessment & Plan: Non-Anion Gap Metabolic Acidosis Assessment: Likely due to renal tubular acidosis from advanced CKD; initial bicarbonate 18, improved with IV bicarbonate. Plan: Continue bicarbonate supplementation (oral sodium bicarbonate as tolerated). Monitor serum bicarbonate and adjust dose to maintain CO2 >22. Monitor for volume overload with bicarbonate therapy. Electrolyte Abnormalities Assessment: Mild hypokalemia (K 3.4), mild hyperchloremia, hypoalbuminemia. Plan: Replete potassium as needed, monitor closely. Monitor sodium, chloride, and albumin. Nutritional consult for hypoalbuminemia. (2) Atrial fibrillation with RVR Assessment & Plan: Paroxysmal Atrial Fibrillation ([id number] 2) Assessment: New-onset atrial fibrillation, rate controlled with metoprolol, no current symptoms. Plan: Continue metoprolol for rate control. Assess need for anticoagulation ([id number] 2, but bleeding risk in CKD). Echocardiogram pending for structural assessment. Monitor electrolytes and volume status. (3) UTI (urinary tract infection) (4) Nephrolithiasis Assessment & Plan: Nephrolithiasis and Bilateral Renal Scarring Assessment: History of recurrent stones, current nonobstructing calculus, and bilateral scarring, likely contributing to CKD progression. Plan: Monitor for signs of obstruction or infection. Encourage high fluid intake as tolerated. Consider metabolic stone workup when stable. Urology referral for stone management if indicated. (5) Acute kidney injury Assessment & Plan: RADHA on CKD Stage 4/5 no improvement with conservative management thus far. Assessment: Acute kidney injury superimposed on advanced CKD, likely multifactorial (pre-renal from volume depletion, possible acute tubular injury, chronic interstitial nephritis from stones, infections, NSAID use). Plan: Continue to monitor renal function and urine output closely. Maintain euvolemia; avoid further nephrotoxins (NSAIDs, contrast). Adjust all medications for renal dosing. Monitor for indications for renal replacement therapy (refractory hyperkalemia, acidosis, volume overload, uremic symptoms). Repeat renal imaging if clinical status changes. She and I had a lengthy discussion regarding renal replacement therapy (dialysis), she does not appear to show any improvemnt thus far, unfortunately she will need to start dialysis as soon as possible. We will have a catheter placed by the primary team and start dialysis as soon as we can. Dialysis nurses are aware of her. ALLYSON JEAN III DO Oct 01, 2025 18:25
--- NOTE | 2025-10-01 19:56 | CARDIOLOGY REPORT ---
APPROVED REPORT EXAM: Comprehensive 2D, Doppler, and color-flow Echocardiogram. Patient Location: [facility] Blood Pressure: 116/67 mmHg Heart Rate: 64 bpm Indications Arrhythmia SURVEILLANCE MONITOR: Anthony Crane MD NO Previous ECHO 2D Dimensions LA Diam 4.2 cm IVSd 0.9 (0.7-1.1cm) LVDd 4.3 cm PWd 1.0 (0.7-1.1cm) IVSs 1.3 (0.8-1.2cm) LVDs 2.9 (2.5-4.0cm) PWs 1.6 (0.8-1.2cm) LVOT Diameter 2.01 (1.8-2.4cm) LVEF(%) 63.5 (>50%) Ao Asc Diam. 3.41 cm IVC 15.08 mm FS (%) 34.2 % SV 54.0 ml CO 3.5 L/min Aortic Valve AoV Peak Marvel. 124.0 cm/s AoV VTI 26.7 cm AO Peak GR. 6.1 mmHg AO Mean GR. 4 mmHg LVOT VTI 19.57 cm LVOT Peak Marvel. 95.4 cm/s PIETRO(VTI)/BSA 2.33 cm2/m2 PIETRO (VTI) 2.33 cm2 AI P 1/2 Time 1080 ms AV DI 0.73 % Mitral Valve MV E Velocity 73.3 cm/s MV Peak Gr. 3 mmHg MV DECEL TIME 192 ms MV A Velocity 85.4 cm/s MV Mean Gr. 0 mmHg MV PHT 60 ms E/A Ratio 0.9 MVA (PHT) 3.67 cm2 MV VMax 91.3 cm/s MVA VTI 0.00 cm2 MV VTI 0.0 cm Tricuspid Valve TR P. Velocity 253 cm/s RAP ESTIMATE 10 mmHg TR Peak Gr. 26 mmHg RVSP 36 mmHg LEFT VENTRICLE Normal LV size and wall thickness. Overall systolic function is normal. Overall LVEF is 60-65%. RIGHT VENTRICLE RV is mildly dilated with normal function. Estimated PA systolic pressure of 36 mm of mercury. ATRIA Left atrium is mildly dilated. AORTIC VALVE Trileaflet AV appears mildly sclerotic without stenosis. Mild insufficiency by color and spectral flow Doppler. MITRAL VALVE Mitral valve leaflets are mildly thickened with mild annular calcification. No stenosis. Trace regurgitation. TRICUSPID VALVE The tricuspid valve is normal in structure with mild regurgitation. PULMONIC VALVE The pulmonary valve is normal in structure with physiologic insufficiency. GREAT VESSELS The aortic root is normal in size. The ascending aorta is normal in size. The IVC is normal in size and collapses >50% with inspiration. PERICARDIUM Normal pericardium. No effusion. Other Information Study Quality: Adequate Conclusion Overall LVEF is 60-65%. Normal LV size and wall thickness. Overall systolic function is normal. RV is mildly dilated with normal function. Estimated PA systolic pressure of 36 mm of mercury. Trileaflet AV appears mildly sclerotic without stenosis. Mild insufficiency by color and spectral flow Doppler. Mitral valve leaflets are mildly thickened with mild annular calcification. No stenosis. Trace regurgitation. The tricuspid valve is normal in structure with mild regurgitation. The pulmonary valve is normal in structure with physiologic insufficiency. Normal pericardium. No effusion.
[2025-10-01 22:00] VITALS: BP 116/61; PULSE 67; RESP 19; TEMP 98.1; O2SAT 98
[2025-10-02 06:00] VITALS: BP 127/62; PULSE 57; RESP 12; TEMP 97.3; O2SAT 98
[2025-10-02 06:11] LABS: MEAN PLATELET VOLUME 9.9 FL (7.4-10.4); RED CELL DISTRIBUTION WIDTH 13.9 % (11.5-14.5)
[2025-10-02 07:15] LABS: CREATININE 3.70 MG/DL (0.40-0.90); PHOSPHORUS 4.7 MG/DL (2.3-4.5); TOTAL CARBON DIOXIDE 24.8 MMOL/L (24-32); eCRCL 14 ML/MIN; eGFR 12 ML/MIN
[2025-10-02 10:00] VITALS: BP 127/49; PULSE 95; RESP 16; TEMP 97.6; O2SAT 100
[2025-10-02] MEDS ORDERED: potassium Cl 20 mEq SR tablet PO PRN ×2 (10:40)
[2025-10-02] MEDS ORDERED: magnesium sulf-water 4G/100mL 100 ML IV PRN (10:40)
[2025-10-02] MEDS ORDERED: potassium Cl 40MEQ/1/2NS 520ml 520 ML IV PRN (10:40)
--- NOTE | 2025-10-02 11:58 | PROGRESS NOTE- Residence ---
Progress Note - Resident Providers to CC Resident Creating Document: DENNYS MINAYA CC: BERNABE MCGRAW MD ~ Antibiotic Timeout Antibiotic Ordered?: Yes Subjective Patient seen and examined at the bedside today. Patient reports to be feeling better with resolution of burning urination, nausea, and headaches. Daughter at bedside, all questions were answered. Objective Vital Signs Date Time Temp Pulse Resp B/P (MAP) Pulse Ox O2 Delivery O2 Flow Rate FiO2 10/02/25 10:00 97.6 95 16 127/49 (75) 100 Room Air 10/01/25 19:05 0.0 Result Diagram: 10/02/251 10/02/25 0441 General: awake, alert oriented to place, time, and person HEENT: No pallor present, no icterus, moist mucous membranes Neck: No masses and tenderness Resp: Unlabored. Lungs clear to auscultation bilaterally. Chest: Normal expansion Cardiovascular: Regular Rate and rhythm, normal S1 and S2 without murmur, rub or gallop Abdomen: Soft and nontender, no organomegaly, no guarding and rigidity, bowel sounds present Neuro: No focal weakness in the upper and lower limb muscles, power of the muscles 5/5 bilateral upper and lower extremities, normal reflexes bilaterally. Cranial nerves intact Extremities: No cyanosis,clubbing or edema Skin: Warm and Dry. No lesions Psych: Normal affect Assessment Assessment 74 yr old female with history of CKD stage 5 transferred from [facility] for management of RADHA and UTI. Plan Plan UTI, resolving Presented with dysuria, vomiting ongoing for two weeks with history of UTI. Previous history of MDR organism Urinalysis positive for leukocyte esterase, negative nitrites, multiple WBC Urine Cultures negative so far CT abdomen at [facility] ruled out pyelonephritis Continue IV Rocephin, day 4 RADHA on CKD stage 5, most likely multifactorial Prerenal ( due to dehydration, Vasomotor nephropathy) and Intrinsic 2/2 ATN Non anion gap metabolic acidosis, resolved Hypernatremia The patient's renal function test showing improvement. Creatinine 3.5 today. The patient's BUN/creatinine was normal, FENA 1.6% and spot sodium was 50. 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 She follows Dr. Rosario outpatient Patient appeared significantly dehydrated. Was initially treated with IV bicarb drip due to metabolic acidosis. The metabolic acidosis has corrected. Stop NS Start D5W at 50 cc/hour Continue strict I's and o's Dr. Rosario reported no need for dialysis today We will continue monitoring. Continue recommendations per Nephrology Hypokalemia, resolved Hypomagnesemia Potassium improving. Continuing p.o. potassium and magnesium. Conservatively treating the patient's hypokalemia and hypomagnesemia in view of her CKD stage 5. We will continue to monitor the patient's electrolytes closely Nephrolithiasis CT abdomen at [facility] showed small punctate calculi, nonobstructive Recommended adequate hydration. Fluids as above Paroxysmal Afib, rate controlled Gagan Vasc-2 Continue metoprolol succinate 25 mg once daily Echocardiography for overall left ventricular ejection fraction of 60-65% with a right ventricular systolic pressure of 36 mmHg. There is dilation of the left atrium. Patient used eliquis previously but due to bleeding, it was held around 3-4 years ago She follows up with Dr. Crane, and the last she saw him was last month Follow up outpatient. Normocytic Hyperchromic anemia Most likely secondary to anemia of chronic disease. Continue H&H monitoring. Seizures Continue home medication valproic acid 500 mg b.i.d. Depression Continue home medication sertraline 100 mg daily Code status: Full code DVT prophylaxis: Heparin SubQ Diet/nutrition: Renal diet Prognosis: Guarded Disposition: Continue medical management, monitoring the patient's renal function test and electrolytes. Continue management as per Nephrology recommendations. Dennys Machado MD Internal Medicine Resident PGY-2 Date of Service: Oct 02, 2025 Billing Provider: BERNABE MCGRAW MD Common Visit Codes: [id number] INP/OBS CARE(HIGH) DENNYS MINAYA Oct 02, 2025 11:58 BERNABE MCGRAW MD Oct 04, 2025 13:44
--- NOTE | 2025-10-02 12:10 | RADIOLOGY REPORT ---
CHEST RADIOGRAPH Indication: advanced kidney disease Technique: Single frontal view of the chest was obtained COMPARISON: None FINDINGS: Lines and Tubes: None Lungs: Mild congestion. Pleura: No effusion.No pneumothorax. Cardiomediastinal contours: Cardiomegaly. Bones: Unremarkable IMPRESSION: Mild pulmonary vascular congestion.
[2025-10-02] MEDS: magnesium Cl slow-release 64mg tablet PO PRN (13:14)
[2025-10-02 16:12] LABS: CREATININE 3.77 MG/DL (0.40-0.90); TOTAL CARBON DIOXIDE 26.6 MMOL/L (24-32); eCRCL 13 ML/MIN; eGFR 12 ML/MIN
[2025-10-02 18:00] VITALS: BP 132/55; PULSE 59; RESP 16; TEMP 97.6; O2SAT 98
--- NOTE | 2025-10-02 19:22 | PROGRESS NOTE ---
Progress Note Dictate Providers to CC ~ Central Line/PICC still needed: No Tong Indications Met/Not Met: F/C Indications Not Met Antibiotic Ordered?: N/A Objective Vitals Vital Signs Date Time Temp Pulse Resp B/P (MAP) Pulse Ox O2 Delivery O2 Flow Rate FiO2 10/02/25 18:00 97.6 59 16 132/55 (80) 98 Room Air 10/02/25 08:00 0.0 Lab Results: 10/02/25 0441 10/02/25 1551 Objective Vital Signs: As above General: Normal body habitus, no acute distress. Skin: No rashes, lumps, ulcers, blisters, purpura or petechiae HEENT: Anicteric sclera, KATIE Neck: Supple and nontender without enlargement of the thyroid, or lymphadenopathy. Chest: Normal size and shape, no tenderness, CTA bilaterally Heart: Regular. No jugular venous distention, S1 and S2 heard , no gallop Abdomen: Soft and non tender no organomegaly,BS+ Extremities: No pedal edema Neuro: Nonfocal. Advance Care Planning Advanced Care plannin - 30 Minutes Problem\Assessment\Plan Problems/Diagnosis: (1) Disorders of fluid, electrolyte, and acid-base balance Assessment & Plan: Non-Anion Gap Metabolic Acidosis resolved. (2) Atrial fibrillation with RVR Assessment & Plan: Paroxysmal Atrial Fibrillation ([id number] 2) defer managemetn to primary service regarding the use of amiodarone vs eliquis etc. (3) UTI (urinary tract infection) (4) Nephrolithiasis Assessment & Plan: Nephrolithiasis and Bilateral Renal Scarring Assessment: History of recurrent stones, current nonobstructing calculus, and bilateral scarring, likely contributing to CKD progression. Plan: Monitor for signs of obstruction or infection. Encourage high fluid intake as tolerated. Consider metabolic stone workup when stable. Urology referral for stone management if indicated. (5) Acute kidney injury Assessment & Plan: RADHA on CKD Stage 4/5 no improvement with conservative management thus far. Assessment: Acute kidney injury superimposed on advanced CKD, likely multifactorial (pre-renal from volume depletion, possible acute tubular injury, chronic interstitial nephritis from stones, infections, NSAID use). Plan: Continue to monitor renal function and urine output closely. Maintain euvolemia; avoid further nephrotoxins (NSAIDs, contrast). She and I had a lengthy discussion regarding renal replacement therapy (dialysis), she does not appear to show any improvemnt thus far, unfortunately she will need to start dialysis as soon as possible. We will have a catheter placed by the primary team and start dialysis as soon as we can. Dialysis nurses are aware of her. EDDIE ESPARZA MD Oct 02, 2025 19:22
[2025-10-02 22:08] VITALS: BP 122/54; PULSE 65; RESP 16; TEMP 97.6; O2SAT 97
[2025-10-03 06:00] VITALS: BP 116/57; PULSE 53; RESP 16; TEMP 97; O2SAT 97
[2025-10-03 06:15] LABS: MEAN PLATELET VOLUME 10.4 FL (7.4-10.4); RED CELL DISTRIBUTION WIDTH 14.0 % (11.5-14.5)
[2025-10-03 06:27] LABS: CREATININE 3.56 MG/DL (0.40-0.90); PHOSPHORUS 5.0 MG/DL (2.3-4.5); TOTAL CARBON DIOXIDE 24.0 MMOL/L (24-32); eCRCL 14 ML/MIN; eGFR 13 ML/MIN
[2025-10-03 08:00] VITALS: RESP 16; O2SAT 97
--- NOTE | 2025-10-03 08:00 | PROGRESS NOTE ---
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 She has extensive history ofrecurrent UTIs. She was noted to have CKD in April of 2019. At that time her creatinine was 1.2. In june of 2021 it was 2.6 and it has remained in 3.0 range since 2021 until recently. She has dropped her EGFR to 13 but does not have uremic signs yet. She prefers to have AV fistula placed and I am arranging this to be done KODI as outpatient to prep her properly for her dialysis. Her [place] and lambda light chains were normal. she has historically had low degree of proteinuria. STACEY was positive with low titer, complements were normal. She does not take NSAIds. She has partial colectomy and small bowel resection in 1969 and she had made peace with HD. she has a step daughter that visited yesterday and I spoke with both of them. I could see that the step daughter was not too convinced about my reluctance to start HD in her in the acute setting, when the creatinine continues to get better. She was quite dehydrated when she came in and now she is better and creatinine is heading back slowly to her baseline. Her metabolic acidosis is now resolved. She has had history of nephrolithiasis. Objective Vitals Vital Signs Date Time Temp Pulse Resp B/P (MAP) Pulse Ox O2 Delivery O2 Flow Rate FiO2 10/03/25 10:00 98.3 59 12 139/52 (81) 97 Room Air 0.0 Lab Results: 10/03/2552510/03/25525 Objective Vital Signs: As above General: Normal body habitus, no acute distress. Skin: No rashes, lumps, ulcers, blisters, purpura or petechiae HEENT: Anicteric sclera, KATIE Neck: Supple and nontender without enlargement of the thyroid, or lymphadenopathy. Chest: Normal size and shape, no tenderness, CTA bilaterally Heart: Regular. No jugular venous distention, S1 and S2 heard , no gallop Abdomen: Soft and non tender no organomegaly,BS+ Extremities: No pedal edema Neuro: Nonfocal. Advance Care Planning Advanced Care plannin - 30 Minutes Problem\Assessment\Plan Problems/Diagnosis: (1) Disorders of fluid, electrolyte, and acid-base balance Assessment & Plan: Non-Anion Gap Metabolic Acidosis resolved. (2) Atrial fibrillation with RVR Assessment & Plan: Paroxysmal Atrial Fibrillation ([id number] 2) defer managemetn to primary service regarding the use of amiodarone vs eliquis etc. (3) UTI (urinary tract infection) (4) Nephrolithiasis Assessment & Plan: Nephrolithiasis and Bilateral Renal Scarring Assessment: History of recurrent stones, current nonobstructing calculus, and bilateral scarring, likely contributing to CKD progression. Plan: Monitor for signs of obstruction or infection. Encourage high fluid intake as tolerated. Consider metabolic stone workup when stable. Urology referral for stone management if indicated. (5) Acute kidney injury Assessment & Plan: RADHA on CKD Stage 4/5 no improvement with conservative management thus far. Assessment: Acute kidney injury superimposed on advanced CKD, likely multifactorial (pre-renal from volume depletion, possible acute tubular injury, chronic interstitial nephritis from stones, infections, NSAID use). Plan: Continue to monitor renal function and urine output closely. Maintain euvolemia; avoid further nephrotoxins (NSAIDs, contrast). She and I had a lengthy discussion regarding renal replacement therapy (dialysis), she has shown improvement with her renal function with hydration and bicarb replacement that I don't see an emergent need to starat HD yet. I have scheduled her to see us in [facility] office within a month. Meanwhile, I have requested AVF placement by Dr.Hatter MARIEE as outpatient. She is coming close enough for discharge. EDDIE ESPARZA MD Oct 03, 2025 08:00
[2025-10-03] MEDS ORDERED: magnesium Cl slow-release 64mg tablet PO PRN (08:55)
[2025-10-03] MEDS ORDERED: potassium Cl 20 mEq SR tablet PO PRN (08:55)
[2025-10-03] MEDS ORDERED: magnesium sulf-water 4G/100mL 100 ML IV PRN (08:55)
[2025-10-03] MEDS ORDERED: potassium Cl 40MEQ/1/2NS 520ml 520 ML IV PRN (08:55)
[2025-10-03] MEDS: potassium Cl 20 mEq SR tablet PO PRN (09:08)
[2025-10-03 10:00] VITALS: BP 139/52; PULSE 59; RESP 12; TEMP 98.3; O2SAT 97
[2025-10-03] MEDS ORDERED: SODI650T29 PO (12:35)
--- NOTE | 2025-10-03 15:27 | RADIOLOGY REPORT ---
INDICATION: hero, h/o stones TECHNIQUE: Multiple real-time sonographic images of the kidneys and bladder were obtained. COMPARISON: None FINDINGS: RIGHT KIDNEY: Measures 9.4 cm. Normal in echogenicity. No mass. No urinary stones. No hydronephrosis. LEFT KIDNEY: Measures 7.8 cm. Normal in echogenicity. No mass. No urinary stones. No hydronephrosis. BLADDER: unremarkable. IMPRESSION: 1. No hydronephrosis. 2. Mildly atrophic left kidney
--- NOTE | 2025-10-03 18:05 | DISCHARGE SUMMARY-Residence ---
Discharge Summary Providers to CC Resident Creating Document: NORIS ELLIOTTPURVINAYE NENA CC: BERNABE MCGRAW MD ~ Discharge Summary Admission Diagnosis: RADHA, METABOLIC ACIDOSIS Hospital Course DATE OF ADMISSION: 09/29/2025 DATE OF DISCHARGE: 10/03/2025 Discharge Diagnosis\Comment: UTI, resolving RADHA on CKD stage 5, likely multifactorial, prerenal ( due to dehydration, Vasomotor nephropathy) and Intrinsic 2/2 ATN Non anion gap metabolic acidosis, resolved Hypernatremia Hypokalemia, resolved Hypomagnesemia Nephrolithiasis Paroxysmal Afib Normocytic Hyperchromic anemia Seizures Depression Operations\Procedures: None Consultants: Dr Rosario, Nephrology Complications: None Condition on DC: Stable New Medications: Sodium Bicarbonate (Antacid) 650 Mg Tablet 1 TAB PO Q12H for 30 Days, #60 TAB 0 Refills Continued Medications: Divalproex ER* (Depakote ER*) 500 Mg Tab.sr.24h 2 TAB PO BID Ergocalciferol (Vitamin D2) (Vitamin D2) 1,250 Mcg (70892 Unit) Capsule 1 CAP PO Q7D Sertraline Hcl* (Zoloft*) 25 Mg Tablet 100 MG PO BID Discharge Summary: Patient was admitted with the following HPI by Dr Travon Orellana: 44-year-old female with past medical history of CKD stage 4, seizures, revision, came as a transfer from [facility] for management of RADHA. Patient is initially started as dysuria, fever, nausea has been ongoing food to two weeks with decreased food and monitor intake. For these complaints she went to [place] with she was treated with Rocephin, fluids. She was also diagnosed with paroxysmal AFib with RVR and came IV metoprolol. Currently patient is in sinus rhythm with heart rate in 90s. She also had metabolic acidosis for which the started on bicarbonate drip. She is on follow up with Dr. Rosario on outpatient basis for CKD stage 4. Denies oliguria. Hospital course: Patient was admitted with the diagnosis of UTI, RADHA on CKD, and non-anion gap metabolic acidosis. Patient was started on IV ceftriaxone, and aggressive IV hydration with bicarb drip. Patient had slow resolution of dysuria within 48 hours, with no episodes of fevers during hospital course. Patient's did have a significantly elevated creatinine which slowly trended down with IV fluids. Patient was followed by the nephrology team, who initially were considering starting patient on dialysis during hospital stay. But in view of improvement of symptoms, it was decided to continue to monitor and possibly set up with dialysis as an outpatient. Patient completed 5 days of IV ceftriaxone. Patient remained hemodynamically stable during hospital stay, she will be discharged home today. She is in agreement with plan. She will follow up outpatient with Dr. Rosario. Imaging: Kidney ultrasound: No hydronephrosis. Mildly atrophic left kidney Chest x-ray: Mild pulmonary vascular congestion Echocardiogram: Overall LVEF is 60-65%. Normal LV size and wall thickness. Overall systolic function is normal. RV is mildly dilated with normal function. Estimated PA systolic pressure of 36 mm of mercury. Trileaflet AV appears mildly sclerotic without stenosis. Mild insufficiency by color and spectral flow Doppler. Mitral valve leaflets are mildly thickened with mild annular calcification. No stenosis. Trace regurgitation. The tricuspid valve is normal in structure with mild regurgitation. The pulmonary valve is normal in structure with physiologic insufficiency. Normal pericardium. No effusion. Laboratory Tests Test 10/02/25 04:41 10/02/25 15:51 10/03/25 05:26 White Blood Count 4.6 X10'3 4.1 X10'3 Red Blood Count 2.67 X10'6 2.72 X10'6 Hemoglobin 8.5 g/dl 8.6 g/dl Hematocrit 25.4 % 25.6 % Mean Corpuscular Volume 95.4 FL 94.5 FL Mean Corpuscular Hemoglobin 31.9 PG 31.7 PG Mean Corpuscular Hemoglobin Concent 33.5 g/dL 33.5 g/dL Red Cell Distribution Width 13.9 % 14.0 % Platelet Count 67 X10'3 59 X10'3 Mean Platelet Volume 9.9 FL 10.4 FL Neutrophils (%) (Auto) 45.4 % 52.1 % Lymphocytes (%) (Auto) 42.3 % 34.6 % Monocytes (%) (Auto) 7.8 % 8.5 % Eosinophils (%) (Auto) 4.1 % 4.4 % Basophils (%) (Auto) 0.4 % 0.4 % Neutrophils # (Auto) 2.1 X10'3 2.1 X10'3 Lymphocytes # (Auto) 1.9 X10'3 1.4 X10'3 Monocytes # (Auto) 0.4 X10'3 0.3 X10'3 Eosinophils # (Auto) 0.2 X10'3 0.2 X10'3 Basophils # (Auto) 0.0 X10'3 0.0 X10'3 CBC Comment Sodium Level 149 MMOL/L 146 MMOL/L 145 MMOL/L Potassium Level 3.5 MMOL/L 4.2 MMOL/L 3.3 MMOL/L Chloride Level 115 MMOL/L 113 MMOL/L 112 MMOL/L Carbon Dioxide Level 24.8 MMOL/L 26.6 MMOL/L 24.0 MMOL/L Anion Gap 9 6 9 Blood Urea Nitrogen 37 MG/DL 32 MG/DL 37 MG/DL Creatinine 3.70 MG/DL 3.77 MG/DL 3.56 MG/DL Estimated GFR/1.73 m2 12 ML/MIN 12 ML/MIN 13 ML/MIN BUN/Creatinine Ratio 10.0 8.5 10.4 Glucose Level 91 MG/DL 137 MG/DL 109 MG/DL Calcium Level 7.0 MG/DL 7.3 MG/DL 7.1 MG/DL Phosphorus Level 4.7 MG/DL 5.0 MG/DL Magnesium Level 1.4 MG/DL 1.5 MG/DL Total Bilirubin 0.2 MG/DL 0.2 MG/DL Aspartate Amino Transf (AST/SGOT) 9 U/L 9 U/L Alanine Aminotransferase (ALT/SGPT) < 6 U/L < 6 U/L Alkaline Phosphatase 67 IU/L 72 IU/L Total Protein 4.9 G/DL 4.9 G/DL Albumin 2.1 G/DL 2.4 G/DL 2.0 G/DL Globulin 2.8 G/DL 2.9 G/DL Albumin/Globulin Ratio 0.8 0.7 Chemistry Comments Discharge physical exam: Vital Signs Date Time Temp Pulse Resp B/P (MAP) Pulse Ox O2 Delivery O2 Flow Rate FiO2 10/03/25 10:00 98.3 59 12 139/52 (81) 97 Room Air 0.0 General: awake, alert oriented to place, time, and person HEENT: No pallor present, no icterus, moist mucous membranes Neck: No masses and tenderness Resp: Unlabored. Lungs clear to auscultation bilaterally. Chest: Normal expansion Cardiovascular: Regular Rate and rhythm, normal S1 and S2 without murmur, rub or gallop Abdomen: Soft and nontender, no organomegaly, no guarding and rigidity, bowel sounds present Neuro: No focal weakness in the upper and lower limb muscles, power of the muscles 5/5 bilateral upper and lower extremities, normal reflexes bilaterally. Cranial nerves intact Extremities: No cyanosis,clubbing or edema Skin: Warm and Dry. No lesions Psych: Normal affect Disposition: Patient will be discharged home today with the following recommendations: Please continue to take all your medications as prescribed Follow up with your PCP within one week Follow up with Dr Rosario within one week Please return to the ED if any concerning symptoms *Problems/Diagnosis: (1) Disorders of fluid, electrolyte, and acid-base balance Status: Acute (2) Atrial fibrillation with RVR Status: Resolved (3) UTI (urinary tract infection) Status: Acute (4) Nephrolithiasis Status: Chronic (5) Acute kidney injury Status: Acute Total Time Spent on D/C: > 30 Minutes Date of Service: Oct 03, 2025 Billing Provider: BERNABE MCGRAW MD Common Visit Codes: 34959-BQN/[id number] DISCH DAY >30min NAYE MINAYA Oct 03, 2025 17:56 BERNABE MCGRAW MD Oct 04, 2025 13:45
[2025-10-04 11:18] LABS: HBSAG SCREEN Negative (Negative)
== END 2025-10-03 17:00 | disposition home or self-care (01) | DRG 689 ==
LOC: ER 22:51 → ED HOLD 09-29 02:26 → ORTHO 4S 09-29 07:15
PROVIDERS: ADMIT Internal Medicine; ATTEND Family Medicine
DX: N39.0 Urinary tract infection, site not specified (principal); N17.0 Acute kidney failure with tubular necrosis; E87.20 Acidosis, unspecified; E87.0 Hyperosmolality and hypernatremia; D63.1 Anemia in chronic kidney disease; E88.09 Other disorders of plasma-protein metabolism, not elsewhere classified; N18.5 Chronic kidney disease, stage 5; N25.89 Other disorders resulting from impaired renal tubular function; E86.0 Dehydration; I48.0 Paroxysmal atrial fibrillation; G40.909 Epilepsy, unspecified, not intractable, without status epilepticus; F32.A Depression, unspecified; E83.42 Hypomagnesemia; E87.6 Hypokalemia; N20.0 Calculus of kidney; E87.8 Other disorders of electrolyte and fluid balance, not elsewhere classified; Z90.49 Acquired absence of other specified parts of digestive tract; Z87.442 Personal history of urinary calculi; Z79.1 Long term (current) use of non-steroidal anti-inflammatories (NSAID); Z88.8 Allergy status to other drugs, medicaments and biological substances; Z87.440 Personal history of urinary (tract) infections
CPT/HCPCS: 36415; 71045; 76770; 80048; 80053; 81001; 82570; 82728; 83036; 83540; 83550; 83735; 83970; 84100; 84132; 84133; 84156; 84300; 84466; 84540; 85025; 87081; 87088; 87340; 93306; 96365; 96372; 99291; A6446; G0378; J0696; J1644; J2405; J3490; J7030; J7070